=== PATIENT | male | born 1995 | race Caucasian/White ===

== ENCOUNTER 2023-06-22 13:27 | Observation (INO) ==
--- NOTE | 2023-06-22 14:33 | Emergency Department Note ---
Impression & Plan Intractable epigastric abdominal pain ED Provider Note Name: LARISA HOWARD Age: 27 Sex: Male Arrives Via: Walk-In Informant: Patient ED Provider: Satya Mann MD Chief Complaint: Epigastric pain Impression: As per impression above Medical Decision Makin-year-old male male with essentially a years worth of abdominal issues. Sounds like this initially started around an inguinal hernia repair where he had some hemorrhage afterwards. About 3 months ago he ended up having cholecystectomy due to recurrent pains. He has had continued pain since then. Pain is primarily left abdomen but also epigastric in nature. Comes in waves but has been a lot worse recently. On examination patient does have fair amount of tenderness to palpation throughout the abdomen he is quite cachectic and he is uncomfortable. He was given some IV fluids and Benadryl shortly after initial IV placement he had a vasovagal event that resolved pretty quickly. He was given morphine and Reglan nausea improved but continued having pain. He did get some Dilaudid x [address] of the abdomen pelvis is essentially benign as is his laboratory workup. Patient continues to have fair amount of pain. I did get a lactic acid which is normal thus ischemia seems relatively unlikely. Patient does note that he has daily emesis and blood in emesis. This may just be a bad stomach ulcer however he denies any black or bloody stools and his hemoglobin is actually elevated. Hemoglobin elevation is more likely due to dehydration but other labs look pretty good. Will start him on some IV Protonix and given the intractable level of pain I did ask hospitalist to evaluate him. At this point I do not see a clear indication for need of emergent surgical consultation. Triage/Nursing Notes reviewed by Me Differential:Pancreatitis, bowel perforation, biliary pathology, stomach ulcer, gastritis, bowel ischemia, renal colic, appendicitis, bowel obstruction amongst many other pathologies considered Vital Signs: reviewed and remarkable for no significant abnormalities Interventions: Morphine IV, Dilaudid IV x 2, Protonix IV, Reglan IV, Benadryl IV Labs:ED labs Reviewed by me and remarkable for no significant abnormalities Imaging:CT abdomen pelvis with IV contrast as per my informal interpretation reveals no intra-abdominal free fluid bowel obstruction or free air. Confirmed by radiologist no acute findings appreciated EKG:As per my interpretation. Indication epigastric pain. Normal sinus rhythm at 63 bpm QTc of 413. No previous for comparison. No ectopy nor ischemia appreciated. Consults:[place] Hospitalist Plan: Disposition:Hospitalization. Condition: Good History of Present Illness: 19-year-old male arrives for evaluation of epigastric abdominal pain. Patient with about 1 year of abdominal issues. Initially started when he had a hernia repair that had emergency postop surgery due to hemorrhage. He had continued abdominal pain after this and this resulted in 3 months ago. States mild improvement after that but has gradually worsened since. Over the last week or 2 severe abdominal pain. Pain is primarily epigastric and throughout the left abdomen. He is having daily vomiting. At times he notes some blood in his emesis. He also notes daily diarrhea loose liquid watery stools. States he is in so much pain that if he takes a deep breath his abdomen hurts. Denies any chest pain, syncope, palpitations, headache, neck pain, fevers, chills, urinary symptoms, leg swelling, rashes or other concerning signs or symptoms. He previously was on Zofran for the nausea however this finished this. He notes a history of marijuana use but has not used in the last 2 months. No falls, trauma, injuries. No blood thinner use. Denies recent marijuana use states he stopped using about 2 to 3 months ago. Past Medical History:Inguinal hernia repair cholecystectomy, Home Medications:No daily medications Allergies:No known drug allergy Vitals:Blood Pressure: 100/73, Pulse 80, RR 19, T 36.5C, O2 100% on RA Physical Exam: GENERAL: Patient is cachectic appearing and in moderate distress. Dry mucous membranes RESPIRATORY: No dyspnea. Clear to auscultation and equal bilaterally. CARDIOVASCULAR: Regular rate and rhythm.No murmur appreciated. GASTROINTESTINAL: Diffuse tenderness entire abdomen with hyperactive bowel sounds. Primary pain is in the left lateral abdomen. EXTREMITIES: Normal motion all extremities, no cyanosis, no edema. NEUROLOGIC: Alert and oriented. No focal neurologic deficits appreciated SKIN: No rash, no jaundice, no diaphoresis. PSYCH: Appropriate GCS: 15 ED Course: Times/Reassessments: continued discomfort agreeable to hospitalization Satya Mann MD Past Med/Surg History Medical History (Updated 06/22/23 @ 19:48 by Satya Mann MD) Nausea and vomiting in adult Chronic diarrhea Urinary retention Surgical History (Updated 06/22/23 @ 19:40 by Jd Lam, PhD, DO) History of inguinal herniorrhaphy History of cholecystectomy Social History Smoking Status: Never smoker Preferred Language: Mauritanian Feels Safe at Home: Yes Allergies Allergies Allergy/AdvReac Type Severity Reaction Status Date / Time No Known Allergies Allergy Verified 07/07/22 09:52 Home Meds Home Medications Medication Instructions Recorded Confirmed ondansetron 4 mg disintegrating 4 mg PO Q6 PRN Nausea And Vomiting 06/22/23 06/22/23 tablet Results & Data (ED) Vital Signs Vital Signs - 24 hr 06/22/23 13:40 06/22/23 15:25 06/22/23 15:25 Temperature 36.5 C Temperature Source Temporal Artery Scan Pulse Rate 80 79 Pulse Rate [Apical] Pulse Rate from SpO2 Sensor 83 Respiratory Rate 19 16 Blood Pressure 100/73 120/83 Blood Pressure [Right Arm] Blood Pressure Mean 82 95 Blood Pressure Mean [Right Arm] Pulse Oximetry 100 100 Oxygen Delivery Method Room Air Sepsis Recent Fever Within 48 Hours No Sepsis New/Unexplained Change in Mental Status No Sepsis Action Taken by Nursing No Action Required 06/22/23 15:25 06/22/23 15:30 06/22/23 15:30 Temperature Temperature Source Pulse Rate 94 H 84 Pulse Rate [Apical] Pulse Rate from SpO2 Sensor 85 Respiratory Rate 13 Blood Pressure 112/72 Blood Pressure [Right Arm] Blood Pressure Mean 98 Blood Pressure Mean [Right Arm] Pulse Oximetry 100 Oxygen Delivery Method Sepsis Recent Fever Within 48 Hours Sepsis New/Unexplained Change in Mental Status Sepsis Action Taken by Nursing 06/22/23 15:31 06/22/23 15:31 06/22/23 15:38 Temperature Temperature Source Pulse Rate 78 67 Pulse Rate [Apical] Pulse Rate from SpO2 Sensor 77 68 Respiratory Rate 14 16 Blood Pressure 133/70 Blood Pressure [Right Arm] Blood Pressure Mean 83 Blood Pressure Mean [Right Arm] Pulse Oximetry 100 95 Oxygen Delivery Method Sepsis Recent Fever Within 48 Hours Sepsis New/Unexplained Change in Mental Status Sepsis Action Taken by Nursing 06/22/23 15:38 06/22/23 15:43 06/22/23 15:43 Temperature Temperature Source Pulse Rate 67 Pulse Rate [Apical] Pulse Rate from SpO2 Sensor 67 Respiratory Rate 14 Blood Pressure 96/77 L 111/60 Blood Pressure [Right Arm] Blood Pressure Mean 79 73 Blood Pressure Mean [Right Arm] Pulse Oximetry 94 Oxygen Delivery Method Sepsis Recent Fever Within 48 Hours Sepsis New/Unexplained Change in Mental Status Sepsis Action Taken by Nursing 06/22/23 15:45 06/22/23 15:45 06/22/23 15:57 Temperature Temperature Source Pulse Rate 57 L Pulse Rate [Apical] Pulse Rate from SpO2 Sensor 57 L Respiratory Rate 12 Blood Pressure 117/67 110/64 Blood Pressure [Right Arm] Blood Pressure Mean 91 79 Blood Pressure Mean [Right Arm] Pulse Oximetry 94 Oxygen Delivery Method Sepsis Recent Fever Within 48 Hours Sepsis New/Unexplained Change in Mental Status Sepsis Action Taken by Nursing 06/22/23 15:57 06/22/23 16:00 06/22/23 16:00 Temperature Temperature Source Pulse Rate 59 L 59 L Pulse Rate [Apical] Pulse Rate from SpO2 Sensor 58 L 58 L Respiratory Rate 17 5 L Blood Pressure 120/66 Blood Pressure [Right Arm] Blood Pressure Mean 84 Blood Pressure Mean [Right Arm] Pulse Oximetry 99 99 Oxygen Delivery Method Sepsis Recent Fever Within 48 Hours Sepsis New/Unexplained Change in Mental Status Sepsis Action Taken by Nursing 06/22/23 16:15 06/22/23 16:15 06/22/23 16:19 Temperature Temperature Source Pulse Rate 63 Pulse Rate [Apical] Pulse Rate from SpO2 Sensor 62 Respiratory Rate 16 Blood Pressure 114/66 113/62 Blood Pressure [Right Arm] Blood Pressure Mean 91 86 Blood Pressure Mean [Right Arm] Pulse Oximetry 99 Oxygen Delivery Method Sepsis Recent Fever Within 48 Hours Sepsis New/Unexplained Change in Mental Status Sepsis Action Taken by Nursing 06/22/23 16:19 06/22/23 16:37 06/22/23 16:40 Temperature Temperature Source Pulse Rate 63 59 L 62 Pulse Rate [Apical] Pulse Rate from SpO2 Sensor 63 63 Respiratory Rate 12 10 L 15 Blood Pressure Blood Pressure [Right Arm] Blood Pressure Mean Blood Pressure Mean [Right Arm] Pulse Oximetry 99 98 Oxygen Delivery Method Sepsis Recent Fever Within 48 Hours Sepsis New/Unexplained Change in Mental Status Sepsis Action Taken by Nursing 06/22/23 16:40 06/22/23 16:45 06/22/23 16:45 Temperature Temperature Source Pulse Rate 61 Pulse Rate [Apical] Pulse Rate from SpO2 Sensor 61 Respiratory Rate 19 Blood Pressure 120/73 122/72 Blood Pressure [Right Arm] Blood Pressure Mean 79 89 Blood Pressure Mean [Right Arm] Pulse Oximetry 98 Oxygen Delivery Method Sepsis Recent Fever Within 48 Hours Sepsis New/Unexplained Change in Mental Status Sepsis Action Taken by Nursing 06/22/23 17:00 06/22/23 17:00 06/22/23 17:15 Temperature Temperature Source Pulse Rate 54 L 55 L Pulse Rate [Apical] Pulse Rate from SpO2 Sensor 53 L 55 L Respiratory Rate 14 12 Blood Pressure 118/71 Blood Pressure [Right Arm] Blood Pressure Mean 89 Blood Pressure Mean [Right Arm] Pulse Oximetry 96 96 Oxygen Delivery Method Sepsis Recent Fever Within 48 Hours Sepsis New/Unexplained Change in Mental Status Sepsis Action Taken by Nursing 06/22/23 17:15 06/22/23 17:30 06/22/23 17:31 Temperature Temperature Source Pulse Rate 72 Pulse Rate [Apical] Pulse Rate from SpO2 Sensor 72 Respiratory Rate 16 Blood Pressure 128/84 157/85 H Blood Pressure [Right Arm] Blood Pressure Mean 106 110 Blood Pressure Mean [Right Arm] Pulse Oximetry 100 Oxygen Delivery Method Sepsis Recent Fever Within 48 Hours Sepsis New/Unexplained Change in Mental Status Sepsis Action Taken by Nursing 06/22/23 17:31 06/22/23 17:31 06/22/23 17:43 Temperature Temperature Source Pulse Rate 69 Pulse Rate [Apical] 73 Pulse Rate from SpO2 Sensor 69 Respiratory Rate 16 26 H Blood Pressure 157/85 H Blood Pressure [Right Arm] 157/85 H Blood Pressure Mean 110 Blood Pressure Mean [Right Arm] 109 Pulse Oximetry 100 99 Oxygen Delivery Method Room Air Sepsis Recent Fever Within 48 Hours Sepsis New/Unexplained Change in Mental Status Sepsis Action Taken by Nursing 06/22/23 17:45 06/22/23 17:45 06/22/23 17:45 Temperature Temperature Source Pulse Rate 68 Pulse Rate [Apical] Pulse Rate from SpO2 Sensor 66 Respiratory Rate 14 Blood Pressure 139/94 139/94 Blood Pressure [Right Arm] Blood Pressure Mean 120 120 Blood Pressure Mean [Right Arm] Pulse Oximetry 97 Oxygen Delivery Method Sepsis Recent Fever Within 48 Hours Sepsis New/Unexplained Change in Mental Status Sepsis Action Taken by Nursing 06/22/23 18:00 06/22/23 18:02 06/22/23 18:02 Temperature Temperature Source Pulse Rate 62 68 Pulse Rate [Apical] Pulse Rate from SpO2 Sensor 64 70 Respiratory Rate 18 21 Blood Pressure 141/69 H Blood Pressure [Right Arm] Blood Pressure Mean 103 Blood Pressure Mean [Right Arm] Pulse Oximetry 96 99 Oxygen Delivery Method Sepsis Recent Fever Within 48 Hours Sepsis New/Unexplained Change in Mental Status Sepsis Action Taken by Nursing 06/22/23 18:15 06/22/23 18:15 06/22/23 18:30 Temperature Temperature Source Pulse Rate 62 58 L Pulse Rate [Apical] Pulse Rate from SpO2 Sensor 62 58 L Respiratory Rate 8 L 9 L Blood Pressure 139/87 Blood Pressure [Right Arm] Blood Pressure Mean 105 Blood Pressure Mean [Right Arm] Pulse Oximetry 97 95 Oxygen Delivery Method Sepsis Recent Fever Within 48 Hours Sepsis New/Unexplained Change in Mental Status Sepsis Action Taken by Nursing 06/22/23 18:30 06/22/23 18:45 06/22/23 19:43 Temperature Temperature Source Pulse Rate 87 72 Pulse Rate [Apical] Pulse Rate from SpO2 Sensor 87 Respiratory Rate 17 Blood Pressure 128/72 Blood Pressure [Right Arm] Blood Pressure Mean 78 Blood Pressure Mean [Right Arm] Pulse Oximetry 98 Oxygen Delivery Method Sepsis Recent Fever Within 48 Hours Sepsis New/Unexplained Change in Mental Status Sepsis Action Taken by Nursing Laboratory Data 06/22/23 14:47 06/22/23 14:47 Lab Results 06/22/23 06/22/23 Range/Units 14:47 18:23 WBC 5.05 (4.8-10.8) K/ul RBC 5.94 (4.70-6.10) M/uL Hgb 18.3 H (14.0-18.0) g/dl Hct 51.4 (42.0-52.0) % MCV 86.5 (80.0-100.0) fL MCH 30.8 (25.0-34.0) pg MCHC 35.6 (32.0-36.0) g/dL RDW Std Deviation 36.6 (36.4-46.3) fL RDW Coeff of Emigdio 11.5 (11.5-14.5) % Plt Count 126 L (130-400) K/uL MPV 10.9 (9.4-12.4) fL Immature Gran % (Auto) 0.2 % Neut % (Auto) 57.0 % Lymph % (Auto) 33.7 % Angelina % (Auto) 6.9 % Eos % (Auto) 1.8 % Baso % (Auto) 0.4 % Neut # (Auto) 2.88 (1.40-6.50) K/uL Lymph # (Auto) 1.70 (1.20-3.40) K/uL Angelina # (Auto) 0.35 (0.11-0.59) K/uL Eos # (Auto) 0.09 (0.00-0.50) K/uL Baso # (Auto) 0.02 (0.00-0.20) K/uL Immature Gran # (Auto) 0.01 (0.01-0.20) K/uL ESR 13 (0-15) mm/hr Sodium 141 (136-145) mmol/L Potassium 3.6 (3.5-5.1) mmol/L Chloride 103 (98-107) mmol/L Carbon Dioxide 28 (21-32) mmol/L Anion Gap 10 (3-11) BUN 8 (6-23) mg/dl Creatinine 0.92 (0.6-1.4) mg/dl Est Cr Clr Drug Dosing 108.2 ml/min Est GFR ( Amer) 130.7 ml/min Est GFR (Non-Af Amer) 112.8 ml/min BUN/Creatinine Ratio 8.7 L (10-20) Glucose 96 (70-99(Fasting)) mg/dl Lactate 0.7 (0.4-2.0) mmol/L Calcium 9.7 (8.6-10.3) mg/dl Magnesium 2.3 (1.7-2.4) mg/dl Total Bilirubin 0.9 (0.2-1.0) mg/dl Direct Bilirubin 0.2 (0-0.2) mg/dl AST 16 (13-39) U/L ALT 13 (7-52) U/L Alkaline Phosphatase 74 (34-104) U/L C-Reactive Protein < 0.50 (0-0.5) mg/dl Total Protein 8.2 (6.0-8.3) gm/dl Albumin 5.0 (3.4-5.0) gm/dl Lipase 14 (11-82) U/L Administered Medications Discontinued Medications Diphenhydramine HCl (Diphenhydramine 50 Mg/Ml Vial) 50 mg IV NOW STA Stop: 06/22/23 14:31 Last Admin: 06/22/23 15:16 Dose: 50 mg Documented By: SWD Hydromorphone HCl (Hydromorphone Inj 1 Mg/Ml Syringe) 1 mg IV NOW STA Stop: 06/22/23 18:02 Last Admin: 06/22/23 18:21 Dose: 1 mg Documented By: MAGDALENE Hydromorphone HCl (Hydromorphone Inj 0.5 Mg/0.5 Ml Syr) 0.5 mg IV NOW STA Stop: 06/22/23 18:53 Last Admin: 06/22/23 19:32 Dose: 0.5 mg Documented By: [email or web address] Sodium Chloride (Nss) 1,000 mls @ 999 mls/hr IV .Q1H1M ONE Stop: 06/22/23 15:30 Last Infusion: 06/22/23 15:53 Dose: Infused Documented By: Admin: 06/22/23 15:15 Dose: 999 mls/hr Documented By: MAGDALENE Sodium Chloride (Nss) 1,000 mls @ 999 mls/hr IV .Q1H1M ONE Stop: 06/22/23 16:25 Last Admin: 06/22/23 16:12 Dose: 999 mls/hr Documented By: Admin: 06/22/23 15:53 Dose: 999 mls/hr Documented By: MAGDALENE Sodium Chloride (Nss) 1,000 mls @ 999 mls/hr IV .Q1H1M ONE Stop: 06/22/23 19:01 Last Admin: 06/22/23 18:24 Dose: 999 mls/hr Documented By: MAGDALENE Pantoprazole Sodium 80 mg/ (Dextrose) 120 mls @ 480 mls/hr IV ONE STA Stop: 06/22/23 18:15 Last Admin: 06/22/23 18:51 Dose: 480 mls/hr Documented By: MAGDALENE Ioversol (Optiray 320 100ml) 90 ml IV ONCE ONE Stop: 06/22/23 16:30 Last Admin: 06/22/23 16:30 Dose: 90 ml Documented By: VIRGILIO Metoclopramide HCl (Metoclopramide Hcl Inj 5 Mg/Ml 2 Ml Vial) 5 mg IV ONE ONE Stop: 06/22/23 14:31 Last Admin: 06/22/23 15:18 Dose: 5 mg Documented By: MAGDALENE Morphine Sulfate (Morphine Sulfate 10 Mg/Ml Carp/Vial) 6 mg IV NOW STA Stop: 06/22/23 14:31 Last Admin: 06/22/23 16:40 Dose: 6 mg Documented By: MAGDALENE Imaging Data Radiologist's Impression: Abdomen/Pelvis CT 06/22/23 14:30 CT SCAN OF THE ABDOMEN AND PELVIS WITH IV CONTRAST CLINICAL HISTORY: Generalized abdominal pain. Recent surgery. COMPARISON STUDY: Abdominal CT dated 06/10/2022. TECHNIQUE: Following the IV administration of 90 cc of Optiray 320, CT scan of the abdomen and pelvis is performed from the lung bases to the proximal femora. Images are reviewed in the axial, sagittal, and coronal planes. IV contrast was administered without complication. A dose lowering technique was utilized adhering to the principles of ALARA. CT DOSE: 530.25 mGy.cm FINDINGS: Lung bases: The heart is normal in size and without pericardial effusion. The lung bases are clear. Liver: The contrast-enhanced liver is normal in size, contour, and attenuation. There is no intrahepatic biliary ductal dilatation. The hepatic veins and portal veins are patent. There is mild periportal edema. Gallbladder: Surgically absent noting clips in the gallbladder fossa. Trace fluid in the gallbladder fossa is nonspecific and likely related to recent surgery. No organized/drainable fluid collection is identified. Spleen: Normal in size and attenuation. Pancreas: Unremarkable. Adrenal glands: Unremarkable. Kidneys: The contrast enhanced kidneys are normal in size and without hydronephrosis. The kidneys enhance symmetrically. There is a punctate nonobstructing left renal calculus. Abdominal vasculature: The abdominal aorta is normal in course and caliber. Bowel: There is no bowel obstruction. The appendix is well-visualized and normal. Peritoneum: There is no intraperitoneal free air or abdominal ascites. Lymphadenopathy: None. Pelvic viscera: The bladder, prostate, and seminal vesicles are normal as visualized. Skeletal structures: No lytic or blastic lesions are seen. IMPRESSION: 1. No acute infectious or inflammatory findings are identified in the abdomen or pelvis. 2. The patient is status post interval cholecystectomy. There is trace fluid in the gallbladder fossa which likely represents expected postsurgical change. Clinical correlation will be required. ACT 112: Negative or not required by law. Electronically signed by: Sánchez Mckeon M.D. 06/22/2023 5:13 PM Discharge Plan Visit Data Chief Complaint: Abdominal Pain Stated Complaint: ABD AND GROIN PAIN ED Provider: Satya Mann Discharge Problem: Intractable epigastric abdominal pain Forms Stand Alone Forms: [employer] [facility] Prescriptions Prescriptions: No Action ondansetron 4 mg tablet,disintegrating 4 mg PO Q6 PRN (Reason: Nausea And Vomiting) Referrals Referrals: Benitez,MD Shmuel [Primary Care Provider] -
[2023-06-22] MEDS: SODIUM CHLORIDE 0.9% 1,000 ML IV ONE ×3 (15:15→18:24)
[2023-06-22] MEDS: diphenhydrAMINE 50 MG/ML VIAL IV STA (15:16)
[2023-06-22] MEDS: METOCLOPRAMIDE HCL INJ 5 MG/ML 2 ML VIAL IV ONE (15:18)
[2023-06-22 15:23] LABS: Alanine Aminotransferase 13 U/L (7-52); Alkaline Phosphatase 74 U/L (34-104); Anion Gap 10 (3-11); Aspartate Aminotransferase 16 U/L (13-39); BUN Creatinine Ratio 8.7 (10-20); Bilirubin Direct 0.2 mg/dl (0-0.2); Bilirubin,Total 0.9 mg/dl (0.2-1.0); Blood Urea Nitrogen 8 mg/dl (6-23); C Reactive Protein < 0.50 mg/dl (0-0.5); Calcium 9.7 mg/dl (8.6-10.3); Carbon Dioxide 28 mmol/L (21-32); Chloride 103 mmol/L (98-107); Creatinine Clr Calc Pharmacy 108.2 ml/min; Est GFR (African American) 130.7 ml/min; Est GFR (Non-African American) 112.8 ml/min; Glucose 96 mg/dl (70-99(Fasting)); Lipase 14 U/L (11-82); Magnesium 2.3 mg/dl (1.7-2.4); Potassium 3.6 mmol/L (3.5-5.1); Sodium 141 mmol/L (136-145); Total Protein 8.2 gm/dl (6.0-8.3)
[2023-06-22 15:32] LABS: Basophils # (auto) 0.02 K/uL (0.00-0.20); Basophils % (auto) 0.4 %; Eosinophils # (auto) 0.09 K/uL (0.00-0.50); Eosinophils % (auto) 1.8 %; Hematocrit (blood only) 51.4 % (42.0-52.0); Hemoglobin 18.3 g/dl (14.0-18.0); Immature Granulocytes # (auto) 0.01 K/uL (0.01-0.20); Immature Granulocytes % (auto) 0.2 %; Lymphocytes % (auto) 33.7 %; Mean Corpuscular Hemoglobin 30.8 pg (25.0-34.0); Mean Corpuscular Hgb Conc 35.6 g/dL (32.0-36.0); Mean Corpuscular Volume 86.5 fL (80.0-100.0); Mean Platelet Volume 10.9 fL (9.4-12.4); Monocytes # (auto) 0.35 K/uL (0.11-0.59); Monocytes % (auto) 6.9 %; Neutrophils # (auto) 2.88 K/uL (1.40-6.50); Platelet Count 126 K/uL (130-400); RDW Coefficient of Variation 11.5 % (11.5-14.5); RDW Standard Deviation 36.6 fL (36.4-46.3); Red Blood Count 5.94 M/uL (4.70-6.10); White Blood Count 5.05 K/ul (4.8-10.8)
[2023-06-22] MEDS: OPTIRAY 320 100ml IV ONE (16:30)
[2023-06-22] MEDS: MoRPHine SULFATE 10 MG/ML CARP/VIAL IV STA (16:40)
--- NOTE | 2023-06-22 17:15 | CT Scan Report ---
CT SCAN OF THE ABDOMEN AND PELVIS WITH IV CONTRAST CLINICAL HISTORY: Generalized abdominal pain. Recent surgery. COMPARISON STUDY: Abdominal CT dated 06/10/2022. TECHNIQUE: Following the IV administration of 90 cc of Optiray 320, CT scan of the abdomen and pelvi s is performed from the lung bases to the proximal femora. Images are reviewed in the axial, sagittal , and coronal planes. IV contrast was administered without complication. A dose lowering technique wa s utilized adhering to the principles of ALARA. CT DOSE: 530.25 mGy.cm FINDINGS: Lung bases: The heart is normal in size and without pericardial effusion. The lung bases are clear. Liver: The contrast-enhanced liver is normal in size, contour, and attenuation. There is no intrahepa tic biliary ductal dilatation. The hepatic veins and portal veins are patent. There is mild periporta l edema. Gallbladder: Surgically absent noting clips in the gallbladder fossa. Trace fluid in the gallbladder fossa is nonspecific and likely related to recent surgery. No organized/drainable fluid collection is identified. Spleen: Normal in size and attenuation. Pancreas: Unremarkable. Adrenal glands: Unremarkable. Kidneys: The contrast enhanced kidneys are normal in size and without hydronephrosis. The kidneys enh ance symmetrically. There is a punctate nonobstructing left renal calculus. Abdominal vasculature: The abdominal aorta is normal in course and caliber. Bowel: There is no bowel obstruction. The appendix is well-visualized and normal. Peritoneum: There is no intraperitoneal free air or abdominal ascites. Lymphadenopathy: None. Pelvic viscera: The bladder, prostate, and seminal vesicles are normal as visualized. Skeletal structures: No lytic or blastic lesions are seen. IMPRESSION: 1. No acute infectious or inflammatory findings are identified in the abdomen or pelvis. 2. The patient is status post interval cholecystectomy. There is trace fluid in the gallbladder fossa which likely represents expected postsurgical change. Clinical correlation will be required. ACT 112: Negative or not required by law. Electronically signed by: Sánchez Mckeon M.D. 06/22/2023 5:13 PM
[2023-06-22] MEDS: HYDROmorphone INJ 1 MG/ML SYRINGE IV STA (18:21)
[2023-06-22] MEDS: PANTOprazole 80 MG in DEXTROSE 5% 100 ML IV STA (18:51)
[2023-06-22] MEDS: HYDROmorphone INJ 0.5 MG/0.5 ML SYR IV STA (19:32)
[2023-06-22 19:45] LABS: Bilirubin Urine Negative (Negative); Blood Urine Negative (Negative); Color Urine Yellow; Glucose Urine UA Negative (Negative); Ketones Urine 1+ (Negative); Leukocyte Esterase Urine Negative (Negative); Nitrite Urine Negative (Negative); Protein Urine Negative (Negative); Specific Gravity Urine > 1.045 (1.000-1.030); Urobilinogen Urine Negative (Negative); pH Urine 7.5 (4.5-7.5)
--- NOTE | 2023-06-22 19:45 | History & Physical Report ---
Date of Service June 22, 2023 Assessment & Plan (1) Nausea and vomiting in adult: Plan: Assessment: 1. Chronic nausea and vomiting daily x 1 year. Today the patient thought he saw a speck of blood in his emesis. He presented to the ER for further evaluation and treatment. Therefore concern for possible upper GI bleed. While in the emergency department he said no further episodes of emesis or hematic emesis for that matter. His hemoglobin is 18.3 g/dL. He has a normal lactic acid with a normal creatinine. I repeat an H&H now we will repeat an H&H in the morning. Continue Protonix daily. If she continues to have symptoms GI consultation to be considered in the morning. Clear liquids for tonight. 2. Chronic nausea and vomiting x 1 year should see GI inpatient versus outpatient depending clinical course for evaluation. 3. Chronic diarrhea per the patient since cholecystectomy and herniorrhaphy. Again should consider GI consultation as an outpatient. 4. Medical marijuana use however he denies any marijuana use for the last 2 months. We will check a urine drug screen given the daily emesis excetra. 5. Mild thrombocytopenia noted on labs at 126,000. Low normal being 130,000. Will recheck in a.m. Plan: As described above. Please refer to orders for further planning. History of Present Illness Chief Complaint: Nausea vomiting questionable hematic emesis/bloody vomit Primary Care Provider: Shmuel Marquis MD This is a 27-year-old male who over the last year he had a cholecystectomy and an inguinal herniorrhaphy for the last year since his surgeries she has had chronic diarrhea daily and chronic vomiting daily. He has never been evaluated by a GI doctor. Patient admits to using medical marijuana routinely. However he states he has not used medical marijuana for any other type of marijuana for the last 2 months. Today when he woke up around 6 AM he had multiple episodes of vomiting. He thought he noticed a speck of blood in one of his episodes of vomiting and therefore came to the ER for further evaluation and treatment. He denies black vomit (amount emesis). He denies bright red blood or dark red blood in his emesis. On presentation his vital signs were all normal. His hemoglobin was greater than 18 g/dL. His lactic acid was 0.7. He had a normal BUN and creatinine. In the ER the patient had a CT of the abdomen pelvis with IV contrast which demonstrated no acute findings and essentially was a normal study.. Course in the emergency department a total of 3 L of saline were ordered the patient received multiple analgesics including IV morphine and IV Dilaudid IV Reglan, IV Protonix We are contacted by the emergency department to consider observation admission to rule out upper GI bleed. We are admitting the patient observation status. Will repeat an H&H stat. We have ordered a urine drug screen. Will allow the patient to have clear liquids since he has been here approximately 6 to 7 hours without any further episodes of emesis. If he tolerates clear liquids his diet can be advanced in the morning. If he has refractory nausea and vomiting overnight GI consultation could be considered in the a.m. Allergies Allergy/AdvReac Type Severity Reaction Status Date / Time No Known Allergies Allergy Verified 07/07/22 09:52 Home Medications Medication Instructions Recorded Confirmed Type ondansetron 4 mg disintegrating 4 mg PO Q6 PRN Nausea And Vomiting 06/22/23 06/22/23 History tablet Past Med/Surg History Medical History (Updated 06/22/23 @ 19:38 by Jd Lam, PhD, DO) Nausea and vomiting in adult Chronic diarrhea Urinary retention Surgical History (Updated 06/22/23 @ 19:40 by Jd Lam, PhD, DO) History of inguinal herniorrhaphy History of cholecystectomy Social History Smoking Status: Never smoker Preferred Language: Icelandic Feels Safe at Home: Yes Review of Systems Review of Systems: A 10 point review of system was obtained and unless otherwise stated here or in history of present illness are negative and noncontributory to chief complaint. Physical Exam Physical Exam: In General: In general 27-year-old male who is alert and oriented at time of my examination he was resting comfortably upon entering the room. He admits to abdominal pain. When asked what his pain is the worst he points to the left lower quadrant actually. He denies any other symptomatology except the daily vomiting x 1 year and the daily diarrhea x 1 year. He lives at home alone he has 2 children who are alive and well he is employed as a staff design engineer. HEENT: Normocephalic atraumatic pupils are equal round and reactive to light bilaterally. No scleral icterus no conjunctival injection external auditory canals are patent septum is in the midline nose is without discharge oral mucosa is pink and moist without lesion. NECK: Supple no rigidity no lymphadenopathy no thyromegaly no carotid bruits no JVD no masses. HEART: Regular rate and rhythm I do not appreciate any ectopy or rub. No murmur. LUNGS: Clear to auscultation bilaterally and anteriorly with no evidence of adventitious sounds/wheezes rales or rhonchi. ABDOMEN: Soft, no rebound, no peritoneal signs, positive bowel sounds, no appreciable organomegaly, no significant tenderness while patient engaged in conversation. However mild left lower quadrant discomfort with deep palpation when not engaged in conversation. EXTREMITIES: Intact, no peripheral cyanosis, clubbing or edema. Strength is 5 out of 5 in extremities x4, no pathological reflexes. NEUROLOGICAL: Cranial nerves II through XII are grossly intact with no focal deficit elicited upon examination. No tremor. Results & Data Results & Data Vital Signs (Past 12 Hours) Vital Signs Temp Pulse Pulse Resp BP BP Pulse Ox 06/22/23 18:45 87 17 98 06/22/23 18:30 128/72 06/22/23 18:30 58 L 9 L 95 06/22/23 18:15 62 8 L 97 06/22/23 18:15 139/87 06/22/23 18:02 68 21 99 06/22/23 18:02 141/69 H 06/22/23 18:00 62 18 96 06/22/23 17:45 68 14 97 06/22/23 17:45 139/94 06/22/23 17:45 139/94 06/22/23 17:43 73 26 H 157/85 H 99 06/22/23 17:31 69 16 100 06/22/23 17:31 157/85 H 06/22/23 17:31 157/85 H 06/22/23 17:30 72 16 100 06/22/23 17:15 128/84 06/22/23 17:15 55 L 12 96 06/22/23 17:00 118/71 06/22/23 17:00 54 L 14 96 06/22/23 16:45 61 19 98 06/22/23 16:45 122/72 06/22/23 16:40 120/73 06/22/23 16:40 62 15 98 06/22/23 16:37 59 L 10 L 06/22/23 16:19 63 12 99 06/22/23 16:19 113/62 06/22/23 16:15 114/66 06/22/23 16:15 63 16 99 06/22/23 16:00 59 L 5 L 99 06/22/23 16:00 120/66 06/22/23 15:57 59 L 17 99 06/22/23 15:57 110/64 06/22/23 15:45 57 L 12 94 06/22/23 15:45 117/67 06/22/23 15:43 111/60 06/22/23 15:43 67 14 94 06/22/23 15:38 96/77 L 06/22/23 15:38 67 16 95 06/22/23 15:31 133/70 06/22/23 15:31 78 14 100 06/22/23 15:30 112/72 06/22/23 15:30 84 13 100 06/22/23 15:25 94 H 06/22/23 15:25 120/83 06/22/23 15:25 79 16 100 06/22/23 13:40 36.5 C 80 19 100/73 100 O2 Del Method 06/22/23 18:45 06/22/23 18:30 06/22/23 18:30 06/22/23 18:15 06/22/23 18:15 06/22/23 18:02 06/22/23 18:02 06/22/23 18:00 06/22/23 17:45 06/22/23 17:45 06/22/23 17:45 06/22/23 17:43 Room Air 06/22/23 17:31 06/22/23 17:31 06/22/23 17:31 06/22/23 17:30 06/22/23 17:15 06/22/23 17:15 06/22/23 17:00 06/22/23 17:00 06/22/23 16:45 06/22/23 16:45 06/22/23 16:40 06/22/23 16:40 06/22/23 16:37 06/22/23 16:19 06/22/23 16:19 06/22/23 16:15 06/22/23 16:15 06/22/23 16:00 06/22/23 16:00 06/22/23 15:57 06/22/23 15:57 06/22/23 15:45 06/22/23 15:45 06/22/23 15:43 06/22/23 15:43 06/22/23 15:38 06/22/23 15:38 06/22/23 15:31 06/22/23 15:31 06/22/23 15:30 06/22/23 15:30 06/22/23 15:25 06/22/23 15:25 06/22/23 15:25 06/22/23 13:40 Room Air Code Status & VTE Plan Code Status Full code. I personally discussed with the patient this evening VTE Prophylaxis Plan VTE Prophylaxis will be ordered: Yes PG Care Time/CCT Total # of Minutes Spent Total Time Spent with Patient: Total time spent is greater than 50% in coordination of care (as documented) at patient's floor/unit and/or counseling patient: Coding Level of Care Code 26098 INT INP/OBS CARE 2/55MIN Diagnoses Nausea and vomiting in adult R11.2
[2023-06-22 19:59] LABS: Appearance Urine Clear (Clear)
[2023-06-22 20:30] LABS: Hematocrit (blood only) 40.2 % (42.0-52.0); Hemoglobin 14.5 g/dl (14.0-18.0)
[2023-06-22 20:31] LABS: Amphetamines+Metham, Urine Neg (Neg); Barbiturates, Urine Neg (Neg); Benzodiazepine, Urine Neg (Neg); Cocaine, Urine Neg (Neg); MDMA (Ecstacy), Urine Neg (Neg); Marijuana, Urine Pos (Neg); Methadone, Urine Neg (Neg); Opiate, Urine Pos (Neg); Phencyclidine, Urine Neg (Neg)
[2023-06-22] MEDS: ACETAMINOPHEN 325 MG TAB PO PRN (21:10)
[2023-06-23 06:25] LABS: Basophils # (auto) 0.01 K/uL (0.00-0.20); Basophils % (auto) 0.2 %; Eosinophils % (auto) 3.9 %; Hematocrit (blood only) 39.1 % (42.0-52.0); Hemoglobin 13.8 g/dl (14.0-18.0); Immature Granulocytes # (auto) 0.01 K/uL (0.01-0.20); Immature Granulocytes % (auto) 0.2 %; Lymphocytes # (auto) 2.26 K/uL (1.20-3.40); Lymphocytes % (auto) 44.1 %; Mean Corpuscular Hemoglobin 30.8 pg (25.0-34.0); Mean Corpuscular Hgb Conc 35.3 g/dL (32.0-36.0); Mean Corpuscular Volume 87.3 fL (80.0-100.0); Mean Platelet Volume 10.9 fL (9.4-12.4); Monocytes # (auto) 0.46 K/uL (0.11-0.59); Neutrophils # (auto) 2.18 K/uL (1.40-6.50); Neutrophils % (auto) 42.6 %; Platelet Count 108 K/uL (130-400); RDW Coefficient of Variation 11.6 % (11.5-14.5); RDW Standard Deviation 37.3 fL (36.4-46.3); Red Blood Count 4.48 M/uL (4.70-6.10); White Blood Count 5.12 K/ul (4.8-10.8)
[2023-06-23 06:53] LABS: Albumin Globulin Ratio 1.8 (0.9-2); Albumin Level 3.6 gm/dl (3.4-5.0); BUN Creatinine Ratio 6.3 (10-20); Bilirubin,Total 0.8 mg/dl (0.2-1.0); Calcium 8.1 mg/dl (8.6-10.3); Creatinine Clr Calc Pharmacy 125.4 ml/min; Est GFR (African American) 140.9 ml/min; Est GFR (Non-African American) 121.6 ml/min; Magnesium 1.9 mg/dl (1.7-2.4); Potassium 3.8 mmol/L (3.5-5.1); Total Protein 5.6 gm/dl (6.0-8.3)
[2023-06-23] MEDS: ONDANSETRON 4 MG OD TAB PO PRN (08:45)
[2023-06-23] MEDS: PANTOprazole 40 MG TAB PO SCH (08:45)
--- NOTE | 2023-06-23 08:47 | Electrocardiogram Report ---
Test Reason : Blood Pressure : / mmHG Vent. Rate : 063 BPM Atrial Rate : 063 BPM P-R Int : 154 ms QRS Dur : 086 ms QT Int : 404 ms P-R-T Axes : 029 081 072 degrees QTc Int : 413 ms Normal sinus rhythm Normal ECG No previous ECGs available Confirmed by Yash Latham ([id number]) on 06/23/2023 8:47:10 AM Referred By: REFERRED SELF Confirmed By:Yash Latham
[2023-06-23] MEDS: KETOROLAC 30 MG/ML VIAL IV ONE (11:15)
[2023-06-23] MEDS: METOCLOPRAMIDE HCL INJ 5 MG/ML 2 ML VIAL IV SCH (11:15)
--- NOTE | 2023-06-23 12:18 | Hospitalist Progress Note ---
Date of Service June 23, 2023 Assessment & Plan (1) Nausea and vomiting in adult: Plan: No obstruction or significant findings on CT scan. Scheduled IV Reglan ordered. Urine tox screen positive for opiates and marijuana. Cannabis could possibly be contributing. No definite evidence of upper GI bleeding. Hemoglobin is stable. (2) Intractable epigastric abdominal pain: Plan: No significant clinical findings. Continue Protonix and as needed Toradol (3) Chronic diarrhea: Plan: No evidence of infectious process. Symptomatic care Plan Hopeful discharge to home within the next day or 2 Admission and Anticipated Discharge Date Admission Date: June 22, 2023 Subjective Alert. Continued nausea and diffuse abdominal discomfort. Parenteral Reglan every 6 hours scheduled dosing has been ordered. Hemoglobin is stable. No definite evidence of upper GI bleeding. Will administer Toradol IV as needed for abdominal discomfort. Abdomen pelvis CT scan on admission is negative. Urine tox screen positive for marijuana and opiates. Review of Systems 2 Review of Systems: Constitutional-no fever or chills ENT-no blurred vision, no double vision, no epistaxis, no sore throat Respiratory-no cough, no wheezing, no shortness of breath Cardiac-no palpitations, no chest pain, no syncope GI-nausea and diffuse abdominal pain. No hematemesis, melena or hematochezia -no urinary retention, no urinary incontinence, no dysuria, no hematuria Musculoskeletal-no joint pain, no muscle tenderness Skin-no bruising, no rashes, no pruritus Neuro-no isolated weakness, no paresthesia Psych-no depression, no anxiety Physical Exam 2 Physical Exam: General-alert and oriented x3, no fever, no chills HEENT-head atraumatic and normocephalic, pupils equal and reactive to light, extraocular muscles intact Neck-no lymphadenopathy or thyromegaly, trachea midline Chest-clear to auscultation. No rales, wheezing or rhonchi Cardiac-regular rate and rhythm, normal S1 and S2, no murmurs Abdomen-normal bowel sounds, no hepatosplenomegaly. Diffuse mild tenderness. No masses. No rebound or guarding Extremities-no cyanosis, clubbing, or edema Neuro-cranial nerves II through XII intact, motor and sensory function within normal limits, strength symmetrical, no focal deficits Psych-normal affect, normal mood Results & Data Results & Data Vital Signs (Past 12 Hours) Vital Signs Temp Pulse Pulse Resp BP Pulse Ox O2 Del Method 06/23/23 11:21 36.4 C L 54 L 16 119/73 98 Room Air 06/23/23 07:45 36.6 C 49 L 14 102/65 99 Room Air 06/23/23 05:47 45 L 06/23/23 02:56 36.5 C 52 L 18 113/68 99 Room Air Laboratory Results 06/23/23 05:55 06/23/23 05:55 PG Care Time/CCT Total # of Minutes Spent Total Time Spent with Patient: Total time spent is greater than 50% in coordination of care (as documented) at patient's floor/unit and/or counseling patient: Coding Level of Care Code 09422 SUB INP/OBS CARE 3/50MIN Diagnoses Nausea and vomiting in adult R11.2 Intractable epigastric abdominal pain R10.13 Chronic diarrhea K52.9
[2023-06-23] MEDS: KETOROLAC 30 MG/ML VIAL IV PRN (18:00)
[2023-06-23] MEDS: ONDANSETRON INJ 2 MG/ML 2 ML VIAL IV STA (20:28)
--- NOTE | 2023-06-24 09:14 | Discharge Summary ---
Date of Service June 24, 2023 Admission HPI Per Admitting Provider This is a 27-year-old male who over the last year he had a cholecystectomy and an inguinal herniorrhaphy for the last year since his surgeries she has had chronic diarrhea daily and chronic vomiting daily. He has never been evaluated by a GI doctor. Patient admits to using medical marijuana routinely. However he states he has not used medical marijuana for any other type of marijuana for the last 2 months. Today when he woke up around 6 AM he had multiple episodes of vomiting. He thought he noticed a speck of blood in one of his episodes of vomiting and therefore came to the ER for further evaluation and treatment. He denies black vomit (amount emesis). He denies bright red blood or dark red blood in his emesis. On presentation his vital signs were all normal. His hemoglobin was greater than 18 g/dL. His lactic acid was 0.7. He had a normal BUN and creatinine. In the ER the patient had a CT of the abdomen pelvis with IV contrast which demonstrated no acute findings and essentially was a normal study.. Course in the emergency department a total of 3 L of saline were ordered the patient received multiple analgesics including IV morphine and IV Dilaudid IV Reglan, IV Protonix We are contacted by the emergency department to consider observation admission to rule out upper GI bleed. We are admitting the patient observation status. Will repeat an H&H stat. We have ordered a urine drug screen. Will allow the patient to have clear liquids since he has been here approximately 6 to 7 hours without any further episodes of emesis. If he tolerates clear liquids his diet can be advanced in the morning. If he has refractory nausea and vomiting overnight GI consultation could be considered in the a.m. Principal Diagnosis Intractable nausea and vomiting, chronic diarrhea, elevated liver function tests Discharge Exam General-alert and oriented x3, no fever, no chills HEENT-head atraumatic and normocephalic, pupils equal and reactive to light, extraocular muscles intact Neck-no lymphadenopathy or thyromegaly, trachea midline Chest-clear to auscultation. No rales, wheezing or rhonchi Cardiac-regular rate and rhythm, normal S1 and S2, no murmurs Abdomen-normal bowel sounds, no hepatosplenomegaly. Diffuse mild tenderness. No masses. No rebound or guarding Extremities-no cyanosis, clubbing, or edema Neuro-cranial nerves II through XII intact, motor and sensory function within normal limits, strength symmetrical, no focal deficits Psych-normal affect, normal mood Discharge Data Allergies Allergy/AdvReac Type Severity Reaction Status Date / Time No Known Allergies Allergy Verified 07/07/22 09:52 Consultations 06/22/23 19:10 ED Decision to Admit Stat Ordered Studies 06/22/23 14:30 CT abd pelvis IV con only Stat Hospital Course (1) Nausea and vomiting in adult: No obstruction or significant findings on CT scan. Much improved with scheduled IV Reglan. Urine tox screen positive for opiates and marijuana. Cannabis could possibly be contributing. No definite evidence of upper GI bleeding. H emoglobin is stable. He is now tolerating oral intake. Continue oral Reglan before meals and at bedtime at discharge (2) Intractable epigastric abdominal pain: No significant clinical findings. Continue Protonix and as needed Toradol (3) Chronic diarrhea: No evidence of infectious process. Symptomatic care Plan Home today, June 23 Total Time Total Time Spent Total Time Spent (In Minutes): Intractable nausea and vomiting, elevated liver function tests Discharge Plan Discharge Items Patient Disposition: Home - Self-Care Reason For Visit: N/V ? GIB Discharge Diagnosis: Intractable nausea and vomiting, elevated liver function test Activity: Resume your previous activity Non-emergency contact: Primary Care Provider Call non-emergency contact if: your symptoms worsen Follow-up/Referrals: Shmuel Marquis MD [Primary Care Provider] - Diet: Regular Addtl Attending Provider Instructions: Take Reglan 5 mg before meals and at bedtime as directed Pending Studies at Discharge: No Stand-Alone Forms: My [employer], Smoking Cessation Medications and DC Order Prescriptions: New metoclopramide HCl [Reglan] 5 mg tablet 5 mg PO ACHS Qty: 40 0RF Continued ondansetron 4 mg tablet,disintegrating 4 mg PO Q6 PRN (Reason: Nausea And Vomiting) Discharge Orders: Discharge Order (Routine); Ordered 06/24/23 Ordered By: Silas Willams Admission Data Admit Date/Time: 06/22/23 19:29 Attending Provider: Silas Willams Admit Provider: Jd Lam Primary Care Provider: Shmuel Marquis Other Providers: Jd Lam Coding Level of Care Code 59490 INP/OBS DISCH >30 MIN Diagnoses Nausea and vomiting in adult R11.2 Intractable epigastric abdominal pain R10.13 Chronic diarrhea K52.9
[2023-06-25 15:48] LABS: Codeine Urine NEGATIVE ng/mL (<50); Hydrocodone Urine NEGATIVE ng/mL (<50); Hydromor Urine 306 ng/mL (<50); Marijuana Quant, GCMS Urine 521 ng/mL (<5); Morphine Urine 4530 ng/mL (<50); Norhydrocodone Conf Ur NEGATIVE ng/mL (<50); Noroxycodone Urine NEGATIVE ng/mL (<50); Oxycodone Urine NEGATIVE ng/mL (<50); Oxymorph Urine NEGATIVE ng/mL (<50)
== END 2023-06-24 10:14 | disposition home or self-care (01) ==
LOC: EDINP 13:27 → ED 13:27 → SUATTDRO 19:29 → 2N 22:53